=== PATIENT | female | born 1975 | race Two or more races ===

== ENCOUNTER 2017-09-30 12:56 | Emergency (ER) | payer SELFPAY ==
[2017-09-30] MEDS: HYDROcodone/APAP 5/325MG 1 TAB TABLET PO (13:33)
[2017-09-30 13:38] LABS: URINE HCG POC HCG NEGATIVE (Negative)
[2017-09-30 13:39] LABS: ADD MAN DIFF? NO
[2017-09-30 13:50] LABS: ANION GAP 6 (6-14); BASO % 0 % (0-3); BLOOD UREA NITROGEN 12 mg/dL (7-20); BUN/CREATININE RATIO 17 (6-20); CARBON DIOXIDE 29 mmol/L (21-32); CHLORIDE 101 mmol/L (98-107); CREATININE 0.7 mg/dL (0.6-1.0); EOS % 0 % (0-3); GFR 92.2; GLUCOSE 151 mg/dL (70-99); HEMATOCRIT 36.4 % (36.0-47.0); HEMOGLOBIN 12.6 g/dL (12.0-15.5); LYMPH # 1.7 x10^3/uL (1.0-4.8); LYMPH % 27 % (24-48); MEAN CORPUSCULAR HEMOGLOBIN 31 pg (25-35); MEAN CORPUSCULAR HGB CONC 35 g/dL (31-37); MEAN CORPUSCULAR VOLUME 88 fL (79-100); MONO # 0.3 x10^3/uL (0.0-1.1); MONO % 4 % (0-9); NEUT # 4.3 x10^3uL (1.8-7.7); NEUT % 68 % (31-73); PLATELET COUNT 275 x10^3/uL (140-400); POTASSIUM 3.8 mmol/L (3.5-5.1); RED BLOOD COUNT 4.13 x10^6/uL (3.50-5.40); RED CELL DISTRIBUTION WIDTH 13.2 % (11.5-14.5); SODIUM 136 mmol/L (136-145); WHITE BLOOD COUNT 6.4 x10^3/uL (4.0-11.0)
[2017-09-30 13:56] LABS: ALBUMIN 4.1 g/dL (3.4-5.0); ALK PHOS 93 U/L (46-116); ALT (SGPT) 24 U/L (14-59); AST (SGOT) 21 U/L (15-37); TOTAL BILIRUBIN 0.4 mg/dL (0.2-1.0); TOTAL PROTEIN 8.3 g/dL (6.4-8.2)
== END 2017-09-30 15:43 | disposition home or self-care (01) ==
LOC: ER 12:56
DX: N63.20 Unspecified lump in the left breast, unspecified quadrant (principal)
CPT/HCPCS: 36415; 76641; 80053; 81025; 85025; 99285-25

== ENCOUNTER → 2017-10-07 | Outpatient (CLI) | payer SELFPAY | END | disposition home or self-care (01) | LOC: MAMMO 12:59 | DX: C50.912 Malignant neoplasm of unspecified site of left female breast (principal); C77.3 Secondary and unspecified malignant neoplasm of axilla and upper limb lymph nodes | CPT/HCPCS: 19081; 19083; 38505; 76942; 77065; 88305; C1713 ==